=== PATIENT | female | born 1990 | race Caucasian/White ===

== ENCOUNTER 2019-10-28 22:38 | Emergency (ER) | payer MEDICAID, SELFPAY ==
[2019-10-28 22:39] VITALS: BP 134/104; PULSE 92; RESP 16; TEMP 37; O2SAT 96; BMI 21.7
[2019-10-28 23:10] LABS: Basophils % 0.9 % (0.1-2.0); Chloride 102 mmol/L (98-107); Eosinophils % 0.4 % (0.1-12.0); Hematocrit 44.7 % (37.0-47.0); Hemoglobin 15.5 g/dL (12.2-16.2); Lymphocytes # 1.2 K/mm3 (0.7-4.5); Mean Corpuscular HGB Conc 34.8 g/dL (31.8-35.4); Mean Corpuscular Hemoglobin 34.9 pg (27.0-31.2); Mean Corpuscular Volume 100.4 fl (81-99); Mean Platelet Volume 7.2 fl (7.4-10.4); Monocytes # 0.3 K/mm3 (0.1-1.0); Monocytes % 8.8 % (1.7-9.3); Neutrophils # 1.7 K/mm3 (1.8-7.8); Neutrophils % 52.8 % (37.0-80.0); Platelet Count 156 K/mm3 (142-424); Red Blood Count 4.45 M/mm3 (4.20-5.40); Red Cell Distribution Width 13.7 % (11.5-17.5); White Blood Count 3.2 K/mm3 (4.8-10.8)
[2019-10-28 23:11] LABS: Potassium 4.1 mmoL/L (3.5-5.1); Sodium 144 mmol/L (136-145)
[2019-10-28 23:13] LABS: Alanine Aminotransferase 133 U/L (12-78); Alkaline Phosphatase 117 U/L (38-126); Anion Gap 18.1 mEq/L (5-15); Aspartate Amino Transferase 432 U/L (14-36); Bilirubin,Total 0.6 mg/dl (0.2-1.3); Blood Urea Nitrogen 10 mg/dl (7-17); Carbon Dioxide 28 mmol/L (22.0-30.0); Creatinine Clearance Estimated 133 mL/min (50-200); Estimated Glomerular Filt Rate 117 ml/min (>60); GFR (African American) 142 ML/MIN (>60); Lipase 284 U/L (23-300)
[2019-10-28 23:14] LABS: Albumin Level 4.1 g/dl (3.5-5.0); Albumin/Globulin Ratio 1.2 (1.1-1.8); Calcium 8.1 mg/dl (8.4-10.2); Globulin 3.3 g/dL (1.3-3.2); Glucose 106 mg/dl (74-100); Total Protein,Serum 7.4 g/dl (6.3-8.2)
[2019-10-28 23:24] LABS: HCG Qualitative, Serum Negative (Negative)
[2019-10-28 23:32] LABS: Ethyl Alcohol 393 mg/dl (0-10)
--- NOTE | 2019-10-28 23:32 | PC.NURSE ---
ALCOHOL 393 PER ASTRID IN LAB. RELAYED TO ATTENDING PROVIDER; AWAITING NEW ORDERS
[2019-10-28 23:54] VITALS: BP 134/93; PULSE 89; RESP 16; O2SAT 99
[2019-10-29 00:30] VITALS: BP 136/89; PULSE 99; RESP 16; O2SAT 98
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
[2019-10-29 01:02] VITALS: BP 133/84; PULSE 94; RESP 18; TEMP 36.8; O2SAT 96
[2019-10-29 01:22] LABS: Microscopic, Urine URINE MICROSCOPIC (MICROSCOPIC)
[2019-10-29 01:42] LABS: Amphetamine/Metha Screen,Urine Negative ng/ml (<1000); Benzodiazepines Screen,Urine Negative ng/ml (<200)
[2019-10-29 01:43] LABS: Barbiturates Screen,Urine Negative ng/ml (<200); Cannabinoid Screen,Urine Negative ng/ml (<50)
[2019-10-29 01:44] LABS: Cocaine Screen,Urine Negative ng/ml (<300)
[2019-10-29 01:45] LABS: Methadone Screen,Urine Negative ng/ml (<300); Opiate Screen,Urine Negative ng/ml (<300)
[2019-10-29 01:46] LABS: Appearance,Urine CLEAR (Clear); Bilirubin,Urine Negative (Negative); Blood, Urine Negative (Negative); Color,Urine YELLOW (Yellow); Glucose,Urine (UA) Negative (Negative); Ketones,Urine Negative (Negative); Leukocyte Esterase,Urine Negative (Negative); Nitrate,Urine Negative (Negative); PH,Urine 6.5 (5.0-8.5); Phencyclidine Screen,Urine Negative ng/ml (<25); Protein,Urine Negative (Negative); Specific Gravity, Urine 1.015 (1.005-1.030)
[2019-10-29 01:47] LABS: Bacteria,Urine 1+ /lpf; WBC,Urine Occasional #/hpf (0-3)
== END 2019-10-29 00:58 | disposition home or self-care (01) ==
PROVIDERS: Emergency Provider Emergency Medicine
DX: F10.120 Alcohol abuse with intoxication, uncomplicated (principal); R94.5 Abnormal results of liver function studies
CPT/HCPCS: 80053; 80305; 81001; 83690; 84703; 85025; 96365; 96375; 99283; J2405